=== PATIENT | male | born 1960 | race Hispanic/Latino ===

== ENCOUNTER 2019-07-23 18:28 | Emergency (ER) | payer OTHER ==
[~2019-07-23] VITALS: Ht 170.2 cm; Wt 108.9 kg
[2019-07-23] MEDS ORDERED: KETOROLAC TROMETHAMINE 30 MG/ML VIAL IV STA (18:42)
[2019-07-23] MEDS ORDERED: FAMOTIDINE 20 MG/2 ML VIAL IV STA (18:42)
[2019-07-23] MEDS ORDERED: SUCRALFATE 1 GM/10 ML SUSP NG ONE (18:45)
[2019-07-23] MEDS ORDERED: MAGNESIUM/ALUMINUM/SIMETHICONE 30 ML UDC PO ONE (18:45)
[2019-07-23] MEDS ORDERED: METOCLOPRAMIDE HCL 10 MG/2ML VIAL IV ONE (18:45)
[2019-07-23 20:15] VITALS: BP 133/99
== END 2019-07-23 20:31 | disposition home or self-care (01) ==
LOC: ER 18:28
DX: R51 Headache (principal); I10 Essential (primary) hypertension; K21.9 Gastro-esophageal reflux disease without esophagitis
CPT/HCPCS: 99283; J1885; J2765